=== PATIENT | male | born 1940 | race Caucasian/White ===

== ENCOUNTER 2017-08-11 14:28 | Emergency (ER) | payer MEDICARE ==
--- NOTE | 2017-08-11 15:38 | RAD ---
HISTORY: Cough. TWO VIEWS CHEST: 08/11/17 Two views chest demonstrate some calcification of the aorta. There is a small area of spiculated dens ity in the right upper lobe. This may represent a small area of scar versus possible tiny right upper lobe mass. I do recommend further evaluation using comparison with previous old chest radiographs. T he lungs are otherwise unremarkable. No evidence of effusions or pneumonia seen. IMPRESSION: Small area of spiculated density in the right upper lobe. This may represent a possible area of scar versus small malignant region. I do recommend comparison with previous old radiographs of the chest. POS: [facility]
== END 2017-08-11 15:31 | disposition home or self-care (01) ==
LOC: SCSER 14:28
DX: J06.9 Acute upper respiratory infection, unspecified (principal); I10 Essential (primary) hypertension; Z79.82 Long term (current) use of aspirin; Z79.01 Long term (current) use of anticoagulants; Z79.899 Other long term (current) drug therapy
CPT/HCPCS: 71046

== ENCOUNTER 2017-09-09 15:52 | Emergency (ER) | payer MEDICARE ==
[2017-09-09] MEDS ORDERED: Adacel (T-DAP) 0.5 ML VIAL ONE (16:22)
--- NOTE | 2017-09-09 16:53 | RAD ---
TWO VIEW RIGHT FINGER SECOND DIGIT 09/09/17 CLINICAL HISTORY: Pain, laceration injury with edema and erythema. FINDINGS: There is no fracture or discrete radiopaque foreign body. Soft tissue prominence of the right second digit is mild. There is osteoarthritis. IMPRESSION: No acute osseous abnormality of the second digit right hand. POS: [facility]
== END 2017-09-09 16:54 | disposition home or self-care (01) ==
LOC: SCSER 15:52
DX: L03.011 Cellulitis of right finger (principal); I10 Essential (primary) hypertension; I48.91 Unspecified atrial fibrillation; Z79.82 Long term (current) use of aspirin; Z79.01 Long term (current) use of anticoagulants; Z79.899 Other long term (current) drug therapy; W26.0XXA Contact with knife, initial encounter
CPT/HCPCS: 90471; 90715

== ENCOUNTER 2018-12-26 09:45 | Emergency (ER) | payer MEDICARE | END 2018-12-26 10:18 | disposition home or self-care (01) | LOC: SCSER 09:45 | DX: S50.811A Abrasion of right forearm, initial encounter (principal); L03.113 Cellulitis of right upper limb; W26.8XXA Contact with other sharp object(s), not elsewhere classified, initial encounter | CPT/HCPCS: 99282 ==